=== PATIENT | female | born 1970 | race Caucasian/White ===

== ENCOUNTER 2017-12-28 17:17 | Emergency (ER) | payer BC ==
--- NOTE | 2017-12-28 17:31 | ED.PDOC ---
History of Present Illness - General Chief Complaint: General Stated Complaint: skin lesion left heel Time Seen by Provider: 12/28/17 17:20 Source: patient Exam Limitations: no limitations - History of Present Illness Initial Comments: Yamini Viera 47 y/o female stated that she had pyogenic granuloma excised and cauterized on November 01 2017 by a die forger in [place], [place] and since then havent healed .Noted redness and swelling localized around heel area left foot. Timing/Duration: other - one month Severity: mild Location: extremities - left foot Improving Factors: rest Worsening Factors: movement Associated Symptoms: denies symptoms Allergies/Adverse Reactions: Allergies Penicillins Allergy (Verified 08/11/12 13:49) Home Medications: Ambulatory Orders levoFLOXacin [Levaquin] 500 mg PO DAILY #7 tab 12/28/17 Review of Systems - Review of Systems Constitutional: States: no symptoms reported EENTM: States: no symptoms reported Respiratory: States: no symptoms reported Skin: States: see HPI All other Systems: Reviewed and Negative, No Change from Baseline Past Medical History (General) - Patient Medical History Hx Other PMH: Yes - LUPUS Surgical History: other - hysterectomy,c- section - Social History Hx Physical Abuse: No Hx Emotional Abuse: No - Female History Patient : No Family Medical History - Family History Father Non Contributory this Encounter: Non Contributory for this Encounter Mother Family History: Unknown Living Status: Unknown Physical Exam - Physical Exam General Appearance: Alert, Comfortable, No apparent distress Eyes, Ears, Nose, Throat Exam: normal ENT inspection Neck: full range of motion, supple Cardiovascular/Chest: normal peripheral pulses, regular rate, rhythm, no murmur Respiratory: chest non-tender, lungs clear, normal breath sounds Gastrointestinal/Abdominal: normal bowel sounds, non tender, soft, no organomegaly Back Exam: normal inspection, no CVA tenderness Extremity: non-tender, normal inspection, no calf tenderness Neurologic: no motor/sensory deficits, alert, oriented x 3 Skin Exam: warm/dry, normal color Skin Problem Location: lower extremities - left foot Skin Character: erythema - localized left foot, other - friable rounded lesion base of left heel Progress - Progress Progress: 12/28/17 18:05 Vital Signs - 8 hr 12/28/17 17:28 Temperature 98 F Pulse Rate [ 96 H Left Brachial] Respiratory 20 Rate Blood Pressure 158/80 [Left Arm] O2 Sat by Pulse 98 Oximetry - EKG/XRAY/CT XRAY: left foot no acute abnormality Departure - Departure Clinical Impression: Granuloma pyogenicum Time of Disposition: 18:08 Disposition: Discharge to Home or Self Care Condition: Good Departure Forms: ED Discharge - Pt. Copy, Patient Portal Self Enrollment Referrals: Billy Brandt MD [Primary Care Provider] - 1-2 Weeks Prescriptions: levoFLOXacin [Levaquin] 500 mg PO DAILY #7 tab Home Medications: Ambulatory Orders levoFLOXacin [Levaquin] 500 mg PO DAILY #7 tab 12/28/17
[2017-12-28 17:39] VITALS: BP 158/80; TEMP 98; O2SAT 98
--- NOTE | 2017-12-28 17:54 | RAD ---
EXAM DESCRIPTION: Foot,Left 3 Views CLINICAL HISTORY: pain COMPARISON: None. TECHNIQUE: 3 views left FINDINGS: I see no bone joint or soft tissue abnormality. IMPRESSION: Normal left foot. Electronically signed by: Taiwo Victoria MD 12/28/2017 5:53 PM CDT
[2017-12-28] MEDS ORDERED: levoFLOXacin 500 MG TAB PO ONE (18:08)
== END 2017-12-28 18:19 | disposition home or self-care (01) ==
LOC: ER 17:17
DX: L98.0 Pyogenic granuloma (principal); M32.9 Systemic lupus erythematosus, unspecified

== ENCOUNTER → 2019-03-17 | Outpatient (CLI) | payer BC ==
--- NOTE | 2019-03-18 07:38 | RAD ---
EXAM DESCRIPTION: Hand,Right 3 Views (accession [id number]) Hand,Left 3 Views (accession [id number]) CLINICAL HISTORY: Rheumatoid arthritis, unspecified COMPARISON: Right wrist radiograph 10/26/2017. TECHNIQUE: AP, LATERAL, AND OBLIQUE right and left hands. FINDINGS: Three-view right and left hands demonstrate no acute displaced fracture or dislocation. No focal bony erosion or aggressive periosteal reaction seen to suggest an inflammatory arthropathy. There are no significant arthritic changes. No focal soft tissue abnormality. IMPRESSION: Normal bilateral hand radiographs. Electronically signed by: Hector Soto DO 03/18/2019 7:37 AM CDT
--- NOTE | 2019-03-18 07:38 | RAD ---
EXAM DESCRIPTION: Hand,Right 3 Views (accession [id number]) Hand,Left 3 Views (accession [id number]) CLINICAL HISTORY: Rheumatoid arthritis, unspecified COMPARISON: Right wrist radiograph 10/26/2017. TECHNIQUE: AP, LATERAL, AND OBLIQUE right and left hands. FINDINGS: Three-view right and left hands demonstrate no acute displaced fracture or dislocation. No focal bony erosion or aggressive periosteal reaction seen to suggest an inflammatory arthropathy. There are no significant arthritic changes. No focal soft tissue abnormality. IMPRESSION: Normal bilateral hand radiographs. Electronically signed by: Hector Soto DO 03/18/2019 7:37 AM CDT
== END ==
LOC: RAD 15:09
PROVIDERS: ATTEND Internal Medicine Rheumatology
DX: M06.9 Rheumatoid arthritis, unspecified (principal); M19.90 Unspecified osteoarthritis, unspecified site; M79.643 Pain in unspecified hand; M25.539 Pain in unspecified wrist

== ENCOUNTER → 2019-06-14 | Outpatient (CLI) | payer BC | LOC: LAB.O 10:33 | PROVIDERS: ATTEND Otolaryngology | DX: J37.0 Chronic laryngitis (principal) ==